=== PATIENT | female | born 1980 | race Two or more races ===

== ENCOUNTER 2019-02-27 21:09 | Emergency (ER) | payer OTHER ==
[~2019-02-27] VITALS: Ht 165.1 cm; Wt 90.7 kg
[2019-02-27] MEDS ORDERED: ONDANSETRON ODT 4 MG TAB PO ONE (21:30)
[2019-02-27] MEDS ORDERED: HYDROcodone-ACET 7.5/325MG TAB PO ONE (21:30)
[2019-02-27] MEDS ORDERED: KETOROLAC TROMETH 30 MG/ML 1ML VIAL IV ONE (23:15)
[2019-02-28] MEDS ORDERED: LORazepam 2MG/ML-1ML VIAL IV ONE (00:30)
[2019-02-28 01:34] VITALS: BP 107/58
== END 2019-02-28 01:59 | disposition home or self-care (01) ==
LOC: EDBD 21:09 → ER 21:14
DX: G43.909 Migraine, unspecified, not intractable, without status migrainosus (principal); Z90.49 Acquired absence of other specified parts of digestive tract
CPT/HCPCS: 70450; 81025; 96374; 96375; 99284; J1885; J2060; Q0162

== ENCOUNTER 2020-03-22 22:44 | Emergency (ER) | payer OTHER ==
[~2020-03-22] VITALS: Ht 172.7 cm; Wt 90.7 kg
[2020-03-22 23:16] LABS: Basophils # (auto) 0 10 ^3/uL (0-0.2); Basophils % (auto) 0.5 % (0.0-2.0); Eosinophils # (auto) 0.1 10 ^3/uL (0-0.8); Eosinophils % (auto) 1.5 % (0.0-7.0); Hematocrit 39.8 % (36.0-46.0); Hemoglobin 13.3 g/dL (12.2-16.2); Lymphocytes # (auto) 1.6 10 ^3/uL (0.4-5.4); Lymphocytes % (auto) 20.9 % (10.0-50.0); Mean Corpuscular Hemoglobin 31.2 pg (28.0-32.0); Mean Corpuscular Hgb Conc. 33.5 g/dL (32.0-36.0); Monocytes # (auto) 0.5 10 ^3/uL (0-1.3); Monocytes % (auto) 5.9 % (0.0-12.0); Neutrophils # (auto) 5.4 10 ^3/uL (1.6-8.6); Neutrophils % (auto) 71.2 % (37.0-80.0); Nucleated Red Blood Cells % 0.1 %; Platelet Count (auto) 219 10^3/uL (140-450); Red Blood Cells 4.28 10^6/uL (4.0-5.20); Red Cell Distribution Width 13.7 % (11.8-14.3); White Blood Cell 7.7 10^3/uL (4.4-10.8)
[2020-03-22 23:31] LABS: Albumin 3.7 g/dL (3.4-5.0); Calcium 9.1 mg/dL (8.5-10.1); Potassium 4.4 mmol/L (3.5-5.1)
[2020-03-22 23:31] LABS: Urine Bacteria FEW /hpf (None Seen); Urine Blood 1+ /uL (Negative); Urine Mucus FEW (None Seen); Urine Specific Gravity 1.028 (1.001-1.035); Urine WBC 7 /hpf (0 - 5)
[2020-03-22 23:33] LABS: BUN/Creatinine Ratio 20.5
[2020-03-22 23:36] LABS: Bilirubin, Total 0.5 mg/dL (0.2-1.0); Total Protein 6.8 g/dL (6.4-8.2)
[2020-03-23 01:00] VITALS: BP 104/66
[2020-03-23] MEDS ORDERED: DONNATAL 5ml ORAL Elix (BELLADONNA ALK-PHENOBARB) PO ONE (01:30)
[2020-03-23] MEDS ORDERED: ALUM & MAG HYDROX-SIMETH LIQ(MAALOX) 30 ML PO ONE (01:30)
[2020-03-23] MEDS ORDERED: LIDOCAINE VISCOUS 2% 15ML UD PO ONE (01:30)
== END 2020-03-23 02:20 | disposition home or self-care (01) ==
LOC: EDBD 22:44 → ER 22:48
DX: N39.0 Urinary tract infection, site not specified (principal); K21.9 Gastro-esophageal reflux disease without esophagitis; Z90.49 Acquired absence of other specified parts of digestive tract
CPT/HCPCS: 36415; 74176; 80053; 81001; 81025; 82150; 83690; 84484; 85025